=== PATIENT | male | born 1985 | race Caucasian/White ===

== ENCOUNTER 2021-01-25 09:23 | Emergency (ER) | payer OTHER ==
[~2021-01-25] VITALS: Ht 188 cm; Wt 84.5 kg
[2021-01-25 09:26] VITALS: BP 144/97; Ht 188 cm; Wt 84.5 kg
== END 2021-01-25 10:20 | disposition home or self-care (01) ==
LOC: D.ER 09:23
DX: M79.10 Myalgia, unspecified site (principal); V89.2XXA Person injured in unspecified motor-vehicle accident, traffic, initial encounter; Y93.9 Activity, unspecified; Y92.9 Unspecified place or not applicable; M54.5 Low back pain